=== PATIENT | male | born 1965 | race Caucasian/White ===

== ENCOUNTER 2019-03-26 12:35 | Emergency (ER) | payer BC ==
[~2019-03-26] VITALS: Ht 172.7 cm; Wt 99.8 kg
[2019-03-26 13:21] LABS: BASO # 0.1 10*3/uL (0.0-0.1); BASO % 0.5 % (0.0-1.0); EOS % 0.3 % (1.0-4.0); HEMOGLOBIN 16.2 g/dl (14.0-18.0); LYMPH # 1.9 10*3/uL (1.3-4.4); LYMPH % 20.2 % (27.0-41.0); MEAN CELL VOLUME 95.2 fl (80.0-94.0); MEAN CORPUSCULAR HGB 33.5 pg (27.0-31.0); MEAN CORPUSCULAR HGB CONC 35.2 g/dl (33.0-37.0); MEAN PLATELET VOLUME 9.9 fl (9.6-12.3); MONO # 0.6 10*3/uL (0.1-1.0); NEUT # 6.7 10*3/uL (2.3-7.9); NEUT % 72.1 % (47.0-73.0); PLATELET COUNT AUTOMATED 286 10*3/uL (130-400); RED BLOOD COUNT 4.83 10*6/uL (4.50-5.90); RED CELL DISTRI WIDTH 12.2 % (0-14.5); WHITE BLOOD COUNT 9.4 10*3/uL (4.8-10.8)
[2019-03-26 13:34] LABS: ACT PARTIAL THROMBO TIME 22.6 SECONDS (20.0-32.1); INTERNATIONAL NORM RATIO 0.9 (2.0-3.5)
[2019-03-26 13:40] LABS: ALBUMIN 3.8 gm/dl (3.1-4.5); ALKALINE PHOSPHATASE 62 U/L (45-117); BUN 14 mg/dl (7-24); CHLORIDE 109 mmol/L (98-107); CREATININE 1.13 mg/dL (0.70-1.30); POTASSIUM 3.9 mmol/L (3.5-5.1); SGOT/AST 25 IU/L (3-35); SGPT/ALT 40 U/L (12-78); SODIUM 141 mmol/L (136-145); TOTAL PROTEIN 7.5 gm/dL (6.4-8.2)
[2019-03-26 13:41] LABS: TROPONIN I < 0.015 ng/ml (<0.045)
== END 2019-03-26 16:42 | disposition short-term general hospital (02) ==
LOC: ED 12:35
PROVIDERS: Emergency Medicine
DX: R42 Dizziness and giddiness (principal); R61 Generalized hyperhidrosis; R11.2 Nausea with vomiting, unspecified; R51 Headache; R79.1 Abnormal coagulation profile